=== PATIENT | female | born 1990 | race Caucasian/White ===

== ENCOUNTER 2018-02-11 04:28 | Emergency (ER) | payer SELFPAY ==
[~2018-02-11] VITALS: Ht 162.6 cm; Wt 57.0 kg
[~2018-02-11 04:28] MED LIST: (None)3.5 GM OP; AMITRIPTYLIN50 MG PO; CIPRO500 MG OR; CIPRO500 MG PO; CIPROFLOXACN500 MG PO; CLARITIN10 M1 PO; DEPO-PROVER150 MG/ML IM; DOXYCYCL HYC100 MG PO; E.E.S. 400400 MG OR; FIORICET PO; FIORINA1 OR; FIORINAL PO; FLONASE NASAL50 MCG; GENTAMICIN15 ML/BTL OP; IMITREX50 MG OR; KEFLEX500 MG PO; KETOROLAC60 MG/2 ML IJ; LEVAQUIN500 MG PO; LORTAB 10 OR; LORTAB 7.5-3251 TAB PO; LORTAB5 PO; METRONIDAZOL500 MG PO; MOTRIN800 MG/TAB PO; NEXPLANON68 MG SC; NORCO1 TA1 PO; ORTHO TRI-CY OR; PERCOCET 5/325M1 TAB PO; PRAVASTATIN20 MG PO; PREDNISONE20 MG PO; PREVACID30 M1 PO; PYRIDIUM200 MG PO; ROBITUSSIN AC10 ML PO; SEASONIQUE OR; SEASONIQUE PO; SIMVASTATIN20 MG OR; SPRINTEC 2828 DAY OR; SPRINTEC 2828 DAY PO; TESSALON PER100 MG PO; TORADOL PO; TRAMADOL HCL50 MG PO; TYLENOL # 31 TA1 PO; TYLENOL325 MG OR; ULTRAM50 M1 PO; ULTRAM50 MG OR; ZITHROMAX250 MG OR; ZITHROMAX250 MG PO; ZITHROMAX500 MG PO; ZPAK OR; [UNRECOGNIZED DRUG - CODE] OR; [UNRECOGNIZED DRUG - REMARK]
[2018-02-11 05:45] LABS: IMMATURE GRANULOCYTES 0.6 % (0.0-5.0); MEAN CORPUSCULAR HGB 28.5 pG CALC (26.0-32.0); MEAN CORPUSCULAR HGB CONC 33.8 g/L CALC (32.0-36.0); RED BLOOD COUNT 4.14 mill/uL (4.20-5.60); RED CELL DISTRI WIDTH 14.2 % (11.5-15.5)
[2018-02-11 05:53] LABS: BILIRUBIN, TOTAL 0.9 mg/dL (0.0-1.4); BUN 17 mg/dL (7-17); BUN/CREATININE RATIO 23 (12-20 (CALC)); CARBON DIOXIDE 29 mmol/l (22-30); CHLORIDE 92 mmol/l (95-108); CREATININE 0.7 mg/dL (0.5-1.0); GFR > 60 ML/MIN (>=60 (CALC)); GFR FOR AFR.AMER. > 60 ML/MIN (>=60 (CALC)); POTASSIUM 4.2 mmol/l (3.5-5.1); TOTAL PROTEIN 7.3 g/dL (6.3-8.2)
[2018-02-11 05:56] LABS: ALBUMIN 3.6 g/dL (3.2-5.0); ALKALINE PHOSPHATASE 144 u/l (38-126); ANION GAP 14 (6-22 (CALC)); SGOT/AST 49 u/l (14-36); SODIUM 131 mmol/l (137-146)
[2018-02-11 06:13] LABS: BAND 4 % (0-8); HEMATOCRIT 34.9 % (37.0-47.0); HEMOGLOBIN 11.8 g/dl (12.0-16.0); MANUAL DIFFERENTIAL YES; MEAN CELL VOLUME 84.3 fL CALC (80.0-100.0); PLATELET COUNT 142 thou/uL (130-400)
[2018-02-11] MEDS ORDERED: LOTRISONE CREAM15 GM EX (06:21)
[2018-02-11 06:30] VITALS: BP 113/72
== END 2018-02-11 06:30 | disposition home or self-care (01) | DRG 866 ==
LOC: ED 04:28
PROVIDERS: Family Medicine
DX: B34.9 Viral infection, unspecified (principal); B35.3 Tinea pedis; F17.210 Nicotine dependence, cigarettes, uncomplicated

== ENCOUNTER 2018-02-14 18:07 | Emergency (ER) | payer SELFPAY ==
[~2018-02-14] VITALS: Ht 162.6 cm; Wt 61.4 kg
[~2018-02-14 18:07] MED LIST changes: +LOTRISONE CREAM15 GM EX
[2018-02-14 18:53] LABS: HEMATOCRIT 30.3 % (37.0-47.0); HEMOGLOBIN 10.6 g/dl (12.0-16.0); IMMATURE GRANULOCYTES 1.8 % (0.0-5.0); MEAN CELL VOLUME 81.2 fL CALC (80.0-100.0); MEAN CORPUSCULAR HGB 28.4 pG CALC (26.0-32.0); RED BLOOD COUNT 3.73 mill/uL (4.20-5.60)
[2018-02-14 19:01] LABS: BILIRUBIN, TOTAL 1.2 mg/dL (0.0-1.4); BUN 26 mg/dL (7-17); BUN/CREATININE RATIO 29 (12-20 (CALC)); CARBON DIOXIDE 24 mmol/l (22-30); CHLORIDE 94 mmol/l (95-108); CREATININE 0.9 mg/dL (0.5-1.0); GFR > 60 ML/MIN (>=60 (CALC)); GFR FOR AFR.AMER. > 60 ML/MIN (>=60 (CALC)); LIPASE < 10 u/l (23-300); SGOT/AST 40 u/l (14-36); SODIUM 130 mmol/l (137-146); TOTAL PROTEIN 6.6 g/dL (6.3-8.2)
[2018-02-14 19:02] LABS: ALBUMIN 2.6 g/dL (3.2-5.0); ALKALINE PHOSPHATASE 288 u/l (38-126); ANION GAP 15 (6-22 (CALC)); POTASSIUM 3.2 mmol/l (3.5-5.1)
[2018-02-14 19:09] LABS: BAND 19 % (0-8); MANUAL DIFFERENTIAL YES
[2018-02-14 19:11] LABS: PLATELET COUNT 57 thou/uL (130-400)
[2018-02-14 19:26] LABS: URINE BLOOD DIPSTICK SMALL (NEGATIVE); URINE COLOR YELLOW; URINE GLUCOSE - DIPSTICK NEGATIVE (NEGATIVE); URINE KETONE TRACE mg/dL (NEGATIVE); URINE LEUK ESTERASE NEGATIVE (NEGATIVE); URINE NITRITE - DIPSTICK NEGATIVE (Negative); URINE PROTEIN - DIPSTICK 100 mg/dL (NEG-TRACE)
[2018-02-14 19:28] LABS: URINE BILIRUBIN - DIPSTICK SMALL (NEGATIVE)
[2018-02-14 19:32] LABS: COCAINE NEGATIVE (NEGATIVE); TETRAHYDROCANNABIONOL NEGATIVE (NEGATIVE)
[2018-02-14 19:33] LABS: BARBITURATES NEGATIVE (NEGATIVE); METHADONE NEGATIVE (NEGATIVE); OXCYCODONE POSITIVE (NEGATIVE); TRICYLIC ANTIDEPRESSANTS NEGATIVE (NEGATIVE)
[2018-02-14 19:40] LABS: URINE AMORPH SEDIMENT MODERATE hpf (NONE-FEW); URINE SQUAMOUS EPITHELIAL CELL FEW EPI/hpf (0-FEW)
[2018-02-14 20:57] VITALS: BP 111/71
--- NOTE | 2018-02-16 10:27 | NUR ---
PRELIMINARY C+S RESULTS FAXED TO YANCY WILLARD AT [facility] [phone] BOTH SETS GROWING GRAM (+) COCCI.
== END 2018-02-14 20:58 | disposition short-term general hospital (02) | DRG 193 ==
LOC: ED 18:07
PROVIDERS: Family Medicine
PROC: 0T9B70Z Drainage of Bladder with Drainage Device, Via Natural or Artificial Opening (ICD-10-PCS; principal; 2018-02-14)
DX: J18.9 Pneumonia, unspecified organism (principal); A41.01 Sepsis due to Methicillin susceptible Staphylococcus aureus; R00.0 Tachycardia, unspecified; R09.89 Other specified symptoms and signs involving the circulatory and respiratory systems; R94.31 Abnormal electrocardiogram [ECG] [EKG]; R05 Cough; R79.89 Other specified abnormal findings of blood chemistry; F15.10 Other stimulant abuse, uncomplicated; F11.10 Opioid abuse, uncomplicated
CPT/HCPCS: J1650